=== PATIENT | male | born 1950 | race Caucasian/White ===

== ENCOUNTER 2020-01-09 14:34 | Emergency (ER) | payer MEDICARE, OTHER ==
[~2020-01-09] VITALS: Ht 188 cm; Wt 102.1 kg
[2020-01-09 15:10] LABS: BASOPHILS # (AUTO) 0.1 (0.0-0.1); BASOPHILS % 1.6 % (0.0-1.0); EOSINOPHILS # (AUTO) 0.8 (0.0-0.4); EOSINOPHILS % 10.4 % (0.0-6.0); HEMATOCRIT 42.2 % (38.2-49.6); HEMOGLOBIN 14.3 g/dL (14.0-18.0); LYMPHOCYTES # (AUTO) 1.4 (1.0-3.2); LYMPHOCYTES % 18.9 % (18.0-39.1); MEAN CORPUSCULAR HEMOGLOBIN 30.4 pg (28-32); MEAN CORPUSCULAR HGB CONC 33.9 g/dL (31-35); MEAN CORPUSCULAR VOLUME 89.6 fL (81-99); MONOCYTES # (AUTO) 0.9 (0.2-0.8); MONOCYTES % 11.8 % (4.4-11.3); NEUTROPHILS # (AUTO) 4.2 (2.1-6.9); PLATELET COUNT 298 x10e3/uL (140-360); RED BLOOD COUNT 4.71 x10e6/uL (4.3-5.7); RED CELL DISTRIBUTION WIDTH 13.6 % (11.7-14.4)
[2020-01-09 15:29] LABS: ALANINE AMINOTRANSFERASE 22 IU/L (0-55); ALBUMIN 3.5 g/dL (3.5-5.0); ALBUMIN/GLOBULIN RATIO 0.9 (0.8-2.0); ALKALINE PHOSPHATASE 113 IU/L (40-150); ANION GAP 11.7 mmol/L (8-16); BLOOD UREA NITROGEN 19 mg/dL (7-26); BUN/CREATININE RATIO 17 (6-25); CALCIUM 9.3 mg/dL (8.4-10.2); CARBON DIOXIDE 26 mmol/L (22-29); CHLORIDE 106 mmol/L (98-107); CREATININE, SERUM 1.14 mg/dL (0.72-1.25); EST GLOMERULAR FILTRATION RATE > 60 ML/MIN (60-); GLUCOSE 96 mg/dL (74-118); POTASSIUM 3.7 mmol/L (3.5-5.1); SODIUM 140 mmol/L (136-145)
--- NOTE | 2020-01-09 15:34 | NUR ---
Pt placed in gown, awaiting ultrasound.
--- NOTE | 2020-01-09 17:07 | Diagnostic Imaging Report ---
HISTORY: Enlarged right hemiscrotum COMPARISON : None COMMENT : Ultrasound examination of the genitalia was performed. In addition, Color Doppler and spectral analysis of the testicles were also obtained. There are no prior films available for comparison. There is a complex right hydrocele which measures approximately 8.1 x 3.4 cm and contains echogenic debris. The right testicle is homogeneous in appearance and measures 5.3 x 2.5 x 3.4 cm. There is normal flow to the right testicle on both color Doppler and spectral analysis.. The right epididymis is not visualized likely secondary to the large complex right hydrocele. The left epididymal head measures 1.0 x 0.7 x 1.1 mm and appears unremarkable. The left testis measures 4.5 x 2.2 x 2.6 cm and appears unremarkable. The epididymis and testis are both homogeneous in echotexture with no focal masses identified. Normal flow is identified on color Doppler. There is no evidence of hydroceles or varicoceles. IMPRESSION : Large complex right hydrocele. Signed by: Tad Rivera MD on 01/09/2020 5:04 PM
--- NOTE | 2020-01-09 17:16 | Diagnostic Imaging Report ---
CT of the abdomen and pelvis History: Right inguinal pain Comparison: Ultrasound of the scrotum 01/09/2020. Technique: Multidetector CT scanning of the abdomen and pelvis was performed from the level of the lung bases to the inferior pubic ramus, with IV contrast DOSE REDUCTION: The examination was performed according to departmental dose-optimization program which includes automated exposure control, adjustment of the mA and/or kV according to patient size and/or use of iterative reconstruction technique. Discussion: The lung bases are clear. No focal hepatic lesions are identified. The gallbladder is present nondistended. There are no radiopaque gallstones. There is no intrahepatic or extra hepatic bladder dilatation. The spleen is within normal limits. The bilateral adrenal glands are unremarkable. The pancreas is homogeneous in attenuation. There is no pancreatic ductal dilatation or peripancreatic inflammatory stranding. The kidneys are normal in size and enhance symmetrically. There is no hydroureteronephrosis bilaterally. No kidney stones are identified. The stomach, small, and large bowel are nondistended. There is no bowel wall thickening. The appendix is normal in caliber. There are scattered colonic diverticula without evidence of acute diverticulitis. There is no free intraperitoneal air or ascites. No enlarged abdominal or retroperitoneal lymph nodes are identified. The urinary bladder is within normal limits. There is a large complex right hydrocele which measures approximately 9.3 x 5.9 cm and contains layering debris. No subcutaneous soft tissue gas is identified. There are no acute osseous abdomen bodies. Mild multilevel degenerative changes are present throughout the thoracolumbar spine and are most pronounced at L4-L5 and L5-S1. IMPRESSION: Large complex right hydrocele Signed by: Tad Rivera MD on 01/09/2020 5:12 PM
--- NOTE | 2020-01-09 17:47 | NUR ---
Pt ambulated to restroom.
== END 2020-01-09 19:05 | disposition home or self-care (01) ==
LOC: ER 14:34
DX: N50.811 Right testicular pain (principal); N43.3 Hydrocele, unspecified
CPT/HCPCS: 36415; 74177; 76870; 80053; 85025; 93976; 99284

== ENCOUNTER 2020-09-03 19:19 | Emergency (ER) | payer MEDICARE ==
[~2020-09-03] VITALS: Ht 188 cm; Wt 102.1 kg
[2020-09-03] MEDS ORDERED: KETOROLAC TROMETHAMINE 30 MG/ML VIAL IV STA (20:02)
[2020-09-03] MEDS ORDERED: METHYLPREDNISOLONE SOD SUCC 125 MG/2ML VIAL IV ONE (20:15)
[2020-09-03] MEDS ORDERED: SODIUM CHLORIDE FLUSH 10 ML SYR INJ PRN ×2 (20:15→23:00)
[2020-09-03] MEDS ORDERED: KETOROLAC TROMETHAMINE 30 MG/ML VIAL ONE (20:49)
[2020-09-03] MEDS ORDERED: METHYLPREDNISOLONE SOD SUCC 125 MG/2ML VIAL ONE (20:49)
[2020-09-03] MEDS ORDERED: CEFEPIME HCL 1 GM VIAL IV STA (20:57)
[2020-09-03] MEDS ORDERED: AZITHROMYCIN 500MG/NS 250 ML 250 ML IV ONE (21:00)
[2020-09-03] MEDS ORDERED: SODIUM CHLORIDE 0.9% 1000ML 1,000 ML IV STA (21:05)
[2020-09-03] MEDS ORDERED: SODIUM CHLORIDE 0.9% 1000ML 1,000 ML ONE (21:17)
[2020-09-03] MEDS ORDERED: SODIUM CHLORIDE 0.9% 50ML 50 ML ONE (21:43)
[2020-09-03] MEDS ORDERED: IOPAMIDOL 370 MG/ML 200 ML INFUS..BTL INJ ONE (21:44)
[2020-09-03] MEDS ORDERED: CEFEPIME 1GM/NS 0.9% 50 ML 50 ML IV ONE (22:11)
[2020-09-03] MEDS ORDERED: AZITHROMYCIN 500MG/NS 250 ML 250 ML ONE (22:11)
[2020-09-03] MEDS ORDERED: HEPARIN 25,000 UNIT 5,000 UNIT in DEXTROSE 5% 250ML 250 ML IV STA (22:47)
[2020-09-03] MEDS ORDERED: HEPARIN 25,000 UNIT 25,000 UNIT in DEXTROSE 5% 250ML 250 ML IV STA (22:47)
[2020-09-03] MEDS ORDERED: HEPARIN SOD (PORCINE) 5,000 UNIT/ML VIAL ONE (23:10)
== END 2020-09-04 02:32 | disposition other institution (70) ==
LOC: FSED 19:25
DX: I26.99 Other pulmonary embolism without acute cor pulmonale (principal); J18.9 Pneumonia, unspecified organism; R09.1 Pleurisy; R05 Cough; R06.02 Shortness of breath; R94.31 Abnormal electrocardiogram [ECG] [EKG]; Z20.828 Contact with and (suspected) exposure to other viral communicable diseases
CPT/HCPCS: 71045; 71260; 87040; 93005; 99284; J0456; J0692; J1644; J1885; J2930; J7030; Q9967; U0002